=== PATIENT | female | born 1975 | race Two or more races ===

== ENCOUNTER 2016-06-19 06:06 | Day surgery (SDC) | payer OTHER ==
[2016-06-19] MEDS ORDERED: IOPAMIDOL 300 (61%) 100 ML VIAL IV ONE (06:07)
[2016-06-19 06:30] LABS: SPECIFIC GRAVITY 1.015 (1.001-1.030); URINE BILIRUBIN NEGATIVE (NEGATIVE); URINE BLOOD 1+ (NEGATIVE); URINE GLUCOSE (UA) NEGATIVE (NEGATIVE); URINE LEUKOCYTE ESTERASE TRACE (NEGATIVE); URINE NITRITE NEGATIVE (NEGATIVE); URINE PROTEIN NEGATIVE (NEGATIVE); URINE UROBILINOGEN NORMAL (0-1 mg/dl)
[2016-06-19 06:31] LABS: HCG,QUALITATIVE URINE NEGATIVE; URINE APPEARANCE CLEAR; URINE COLOR YELLOW
[2016-06-19] MEDS ORDERED: SODIUM CHLORIDE 0.9% 1,000 ML ONE (06:32)
[2016-06-19] MEDS ORDERED: ONDANSETRON 4 MG/2ML 2 ML VIAL ONE ×2 (06:32→11:07)
[2016-06-19 06:37] LABS: URINE BACTERIA RARE
[2016-06-19 06:59] LABS: ABSOLUTE NEUTROPHIL COUNT 14.4 K/mm3 (1.8-7.7); BASO # 0.1 K/mm3 (0.0-0.2); BASO % 0.3 % (0.2-1.0); EOS % 0.1 % (0.9-2.9); HEMATOCRIT 34.6 % (37.0-47.0); HEMOGLOBIN 10.6 gm/l (12.0-16.0); IMM NEUT # 0.1 K/mm3 (0-0.2); IMM NEUT% 0.4 % (0-1); LYMPH % 11.3 % (15-45); MEAN CELL VOLUME 73.3 fl (81.0-99.0); MEAN CORPUSCULAR HEMOGLOBIN 22.5 pg (27.0-31.0); MEAN CORPUSCULAR HGB CONC 30.6 g/dl (33.0-37.0); MONO # 1.1 (0.0-0.8); MONO % 6.3 % (4-12); NEUT % 81.6 % (43-75); PLATELET COUNT 331 K/mm3 (130-400)
[2016-06-19 07:11] LABS: ALB/GLOB RATIO 1.3 (>1.0); ALBUMIN 4.2 gm/dL (3.5-5.7); CALCIUM 9.2 mg/dL (8.6-10.3)
--- NOTE | 2016-06-19 07:46 | CT ---
Exam Type: ABD/PELVIS W/ CON Date and Time: 06/19/2016 6:47 AM Clinical information: Right lower quadrant pain. Comparison: None Procedure: Imaging device: [employer] Aqu[employer] [address] scanner 1 mm axial images were obtained through the abdomen and pelvis. Stacked reconstructed 3, 4 and 5 mm images were photographed in the axial coronal and sagittal planes. No oral contrast was utilized for this examination. 100 ml of Isovue-300 was injected intravenously. Exam: with intravenous contrast. FINDINGS: Lung bases:The visualized lung bases appear to be appropriate with no mass, effusion or consolidation visualized. Liver: the liver is homogeneous with no discrete abnormality visualized. No definite findings of biliary dilatation are observed. Spleen: The spleen is homogeneous and does not appear to be enlarged. Gallbladder: Normal without enlargement or evidence of adjacent inflammatory changes. Pancreas: Normal without enlargement or evidence of adjacent inflammatory changes. Adrenal glands: Normal without enlargement or evidence of adjacent inflammatory changes. Abdominal aorta: The aorta is of normal caliber and appears to be without significant atherosclerotic disease. Kidneys: There is symmetric renal enhancement observed. A small low-attenuation focus within the lateral right kidney likely reflects a small cyst. No evidence of hydronephrosis is seen. Bowel structures: Mild somewhat diffuse circumferential thickening of the colonic wall is seen extending from the cecum to the distal descending colon suggesting a component of underlying colitis. No findings of obstruction are visualized. Appendix: The appendix is enlarged measuring up to 12 mm transversely with adjacent periappendiceal stranding consistent with acute appendicitis. No adjacent focal fluid collection is observed. Bladder: The bladder is of normal contour. No wall thickening or significant distention is observed. Hernia: There is a fat filled umbilical hernia identified. Adenopathy: No significant enlarged adenopathy is visualized. Osseous structures: No discrete osseous abnormalities are identified. Pelvic structures: The uterus is enlarged with the suggestion of multiple fibroids including a low-attenuation peripherally calcified mass involving the fundus measuring up to 5.7 cm in size. There is also a somewhat heterogeneous appearance of the right adnexa with a likely collapsing right ovarian cyst measuring 1.9 cm in size. No significant pelvic free fluid is visualized. IMPRESSION: 1. Findings of acute appendicitis. No adjacent focal fluid collection is visualized. 2. Mild circumferential thickening of the majority of the colon, extending from the cecum to the mid descending colon suggesting findings of mild diffuse colitis. No findings of obstruction are visualized. 3. A fibroid uterus with a large rim calcified 5.7 cm fundal low-attenuation mass most consistent with a uterine fibroid. 4. A heterogeneous appearance of the right adnexa with an appearance suggesting a 1.9 cm collapsing right ovarian cyst. 5. A fat filled umbilical hernia. 6. A probable subcentimeter cyst involving the right kidney. The findings were called to Dr. Alfaro at 0743 hours.
[2016-06-19] MEDS ORDERED: PIPERACILLIN SODIUM/TAZOBACTAM 4.5 G in NS 0.9% (MINI-BAG PLUS) 100 ML IV ONE (08:00)
[2016-06-19] MEDS ORDERED: LIDOCAINE 2% (MULTI DOSE) 10 ML VIAL ONE (09:36)
[2016-06-19] MEDS ORDERED: PROPOFOL 20 ML IV ONE (09:36)
[2016-06-19] MEDS ORDERED: SUCCINYLCHOLINE CHL 20 MG/ML DOSE ONE ×5 (09:37→09:40)
[2016-06-19] MEDS ORDERED: ROCURONIUM BROMIDE 10 MG/ML DOSE IV ONE ×10 (09:37)
[2016-06-19] MEDS ORDERED: FENTANYL 5 ML ONE (09:45)
[2016-06-19] MEDS ORDERED: MIDAZOLAM HCL 1 MG/ML 2ML VIAL ONE (09:46)
[2016-06-19] MEDS ORDERED: BUPIVACAINE 0.5% W/EPI SDV 30 ML VIAL ONE (09:56)
[2016-06-19] MEDS ORDERED: SODIUM CHLORIDE 0.9% FLUSH 10 ML ONE (09:56)
[2016-06-19] MEDS ORDERED: CEFAZOLIN SODIUM 1,000 MG VIAL ONE (09:56)
[2016-06-19] MEDS ORDERED: LACTATED RINGERS 1,000 ML ONE (10:06)
[2016-06-19] MEDS ORDERED: EPHEDRINE SULFATE 50 MG/ML 1ML VIAL ONE (10:32)
[2016-06-19] MEDS ORDERED: KETOROLAC TROMETHAMINE 30 MG/ML 1 ML VIAL ONE (11:24)
[2016-06-19] MEDS ORDERED: DEXAMETHASONE SOD PHOS 4 MG/1 ML VIAL ONE (11:24)
[2016-06-19] MEDS ORDERED: PROMETHAZINE HCL 25 MG/ML VIAL IM PRN (11:58)
[2016-06-19] MEDS ORDERED: ATROPINE SULFATE 0.4 MG/1 ML VIAL IV PRN (11:58)
[2016-06-19] MEDS ORDERED: ONDANSETRON 4 MG/2ML 2 ML VIAL IV PRN ×2 (11:58→12:46)
[2016-06-19] MEDS ORDERED: HYDRALAZINE HCL 20 MG/1 ML VIAL IV PRN (11:58)
[2016-06-19] MEDS ORDERED: FENTANYL 100 MCG/2 ML VIAL IV PRN (11:58)
[2016-06-19] MEDS ORDERED: NALOXONE HCL 0.4 MG/ML VIAL IV PRN (11:58)
[2016-06-19] MEDS ORDERED: MEPERIDINE 25 MG/ML SYRINGE IV PRN (11:58)
[2016-06-19] MEDS ORDERED: LABETALOL HCL 5 MG/ML 20ML VIAL IV PRN (11:58)
[2016-06-19] MEDS ORDERED: HYDROMORPHONE HCL 1 MG/ML SYRINGE IV PRN (11:58)
[2016-06-19] MEDS ORDERED: PUMP TUBING ONE (12:32)
[2016-06-19] MEDS: LACTATED RINGERS 1,000 ML IV SCH (12:44)
[2016-06-19] MEDS ORDERED: HYDROCODONE/ACETAMINOPHEN 5/325MG TABLET PO PRN (12:46)
[2016-06-19] MEDS ORDERED: KETOROLAC TROMETHAMINE 30 MG/ML 1 ML VIAL IV PRN (12:46)
[2016-06-19] MEDS ORDERED: MORPHINE SULFATE 2 MG/ML SYRINGE IV PRN (12:46)
[2016-06-19] MEDS ORDERED: LACTATED RINGERS 1,000 ML IV SCH (12:46)
[2016-06-19] MEDS ORDERED: MORPHINE SULFATE 4 MG/ML SYRINGE IV PRN (12:56)
[2016-06-19] MEDS ORDERED: MORPHINE SULFATE 10 MG/ML SYRINGE IV PRN (12:57)
--- NOTE | 2016-06-19 13:03 | HP ---
SATHYA MONEG [id number] DATE OF ADMISSION: June 19, 2016 CHIEF COMPLAINT: Abdominal pain. HISTORY OF PRESENT ILLNESS: Sathya Damon is a 41-year-old female who was seen in the emergency room in consultation on June 19, 2016 at the request of Dr. Alfaro. She describes a one-day history of right lower quadrant abdominal pain. She has had nausea but no fevers, no diarrhea. She was evaluated and a CT scan shows acute appendicitis. She has a large uterine fibroid. She was also noted to have some thickening of the colon, possible colitis. PAST MEDICAL HISTORY: Some anxiety. PAST SURGICAL HISTORY: 1. section time three. 2. Tubal ligation. CURRENT MEDICATIONS: Paxil. ALLERGIES TO MEDICATIONS: NONE KNOWN. FAMILY HISTORY: No one else in the family has been sick. No intestinal cancers identified. SOCIAL HISTORY: She is . She does not smoke. She denies alcohol or drug use. REVIEW OF SYSTEMS: CONSTITUTIONAL: No complaints. EYES: No complaints. EARS, NOSE, THROAT: No complaints. CARDIAC: No complaints. PULMONARY: No complaints. GASTROINTESTINAL: As above. GENITOURINARY: No complaints. GYNECOLOGIC: No complaints. MUSCULOSKELETAL: No complaints. NEUROLOGIC: No complaints. ENDOCRINE: No complaints. HEMATOLOGIC: No complaints. PSYCHIATRIC: Anxiety. PHYSICAL EXAMINATION: VITAL SIGNS: Temperature 98.6. Pulse 61. Respirations 18. Blood pressure 125/70. GENERAL: In general she is awake, alert, in no acute distress. HEENT: Head is atraumatic, normocephalic. Her pupils are equal. Sclera is nonicteric. Oropharynx, large tonsils, no exudate or erythema. NECK: Is supple. Without lymphadenopathy or thyromegaly. LUNGS: Clear to auscultation. Normal respiratory effort. CARDIAC: Regular rate and rhythm. No murmurs heard. ABDOMEN: Soft, nondistended. She is tender in the right lower quadrant. She has some rebound tenderness. No involuntary guarding is appreciated. She has a hernia at the umbilicus. It is not clear if she has a scar here from tubal ligation. EXTREMITIES: Are without cyanosis, clubbing or edema. NEUROLOGIC: She is alert and oriented. Sensation grossly intact to all extremities. PSYCHIATRIC: Shows no signs of anxiety or depression. Appears able to make informed medical decisions. LABORATORIES: test is negative. Urinalysis has a trace of leukocyte esterase, 1+ blood. Sodium 131, potassium 3.7, chloride 99, carbon dioxide is 25, BUN 11, creatinine 0.5, glucose 151. Liver function tests are normal. White blood cell count is 17.7, hemoglobin 10.6, platelets are 331. DIAGNOSTIC IMAGING: CT scan was reviewed. There is a large uterine fibroid with calcifications. There is a tubular structure with inflammatory changes consistent with acute appendicitis. No abscess is seen. The colon appears relatively decompressed, possibly mild colitis. ASSESSMENT: 1. Acute appendicitis. 2. Large uterine fibroid. 3. Possible colitis. PLAN: At this point, her symptoms appear to be from appendicitis. We talked about conservative and operative treatment. We discussed risks of an operation including bleeding and infection, injury to the intestines, possible need to convert to an open procedure. She expressed understanding and would like to proceed with surgery. We will go through the hernia defect at the umbilicus and repair this on the way out. Consider checking stool studies after surgery to evaluate for Clostridium difficile or other cause of colitis. We will not do anything with her large uterine fibroid at this time. cc: Suzy Greer M.D.
[2016-06-19] MEDS ORDERED: PIPERACILLIN-TAZO PREMIX BAG 3.375 G in Premix (D5W) 50 ml 1 EACH IV ONE (15:00)
--- NOTE | 2016-06-19 15:07 | OP ---
SATHYA MONGE [id number] DATE OF OPERATION: June 19, 2016 PREOPERATIVE DIAGNOSIS: 1. Right lower quadrant abdominal pain. 2. Incisional hernia at the umbilicus. POSTOPERATIVE DIAGNOSIS: 1. Acute appendicitis. 2. Incisional hernia at the umbilicus. 3. Large uterine fibroid. PROCEDURE: LAPAROSCOPIC APPENDECTOMY WITH REPAIR OF INCISIONAL HERNIA. SURGEON: Alan August M.D. ANESTHESIA: Jorgito Cabral C.R.N.A., general endotracheal. INDICATIONS: This is a 41-year-old female who presented to the emergency room with right lower quadrant abdominal pain. A CAT scan shows probable acute appendicitis. There is possibly some colitis. There is a large uterine fibroid. There is a hernia at the umbilicus with prior history of tubal ligation. DESCRIPTION: With informed consent she was taken to the operating room where she was laid supine on the operating room table. General endotracheal anesthetic was administered. The abdomen was prepped and draped in the usual fashion. Local anesthetic was administered below the umbilicus. Incision was made. We dissected into a hernia sac. We dissected the umbilical skin away from this. We excised the sac at the level of the fascia. Sutures of Surgilon were placed in the fascial edges and a Arlene port was placed. A pneumoperitoneum was created. Local anesthetic was administered in the suprapubic region and also the epigastric region. The 5 mm ports were placed through small stab incisions. The appendix was clearly inflamed and thickened. A defect was created in the mesoappendix adjacent to the cecum. An Endo MAGDIEL was used to divide the appendix it from the cecum. Two fires of the Endo MAGDIEL were used to divide the mesoappendix. Once it was , it was placed within an EndoCatch bag and removed through the infraumbilical port site. Note was made of a large uterine fibroid. No obvious right ovarian masses were seen. No significant colitis was seen along the right colon. Limited irrigation was used and then suctioned. Ports were removed and the pneumoperitoneum evacuated. I cleared off the fascial edges and then closed the hernia defect in a transverse fashion with [id number] sutures of #0 Surgilon. The wound was irrigated. The umbilical skin was sutured down to the fascia with some #2-0 Vicryl. All skin wounds were closed with subcuticular #4-0 Monocryl. Mastisol and SteriStrips were placed. Sterile dressings were applied. She tolerated the procedure and was taken to the recovery room in stable condition. A note was made that needle, instrument and lap counts were reported as correct at the time of closure. Cc: Suzy Greer M.D.
[2016-06-19 16:36] VITALS: BMI 30.9
[2016-06-19] MEDS ORDERED: ACETAMINOPHEN 500 MG TABLET PO PRN (21:40)
[2016-06-19] MEDS ORDERED: BLISTEX LIPSTICK 1 EACH TP ONE ×2 (22:05→22:07)
[2016-06-20] MEDS: LACTATED RINGERS 1,000 ML IV SCH (02:39)
[2016-06-20 07:49] VITALS: BP 110/68
[2016-06-20 11:01] LABS: C DIFF TOXIN A/B NEGATIVE (NEGATIVE)
--- NOTE | 2016-06-22 15:18 | SURGPATH ---
[facility] [address] [place] [id number] Patient Name: SATHYA MONGE MR#: [id number] : 1975 Gender: F Specimen #: [id number] Collected: 06/19/2016 Received: 06/21/2016 Reported: 06/22/2016 Submitting Phys: SAPPHIRE VAN Copy To Phys: [facility] JANAK ROTH Clinical History / Pre-Operative Diagnosis: Appendicitis Specimen Source / Surgical Procedure Performed: Appendix Interpretation: APPENDIX, APPENDECTOMY: - ACUTE APPENDICITIS Electronically Signed Out Leena Bonilla M.D. Gross Description: The specimen is received in formalin labeled with the patient's name and "appendix". The specimen consists of a 9 cm in length and 0.7-1.5 cm in diameter vermiform appendix with attached mesoappendix. The base is stapled. The serosa is dull with exudate. The mucosa is hemorrhagic. The intraluminal contents are purulent. A distinct perforation or obstruction is not identified. 1A technical sales representatives, base and tip NATHAN Mcbride Microscopic Description: Benign appendiceal sections show extensive mucosal ulceration and acute transmural inflammation without perforation, parasite, dysplasia or neoplasm. 1: [id number] K35.80
== END 2016-06-20 09:48 | disposition home or self-care (01) ==
LOC: ED 06:06 → MS 09:57 → UNDOADMIN 09:57 → SDC 09:57
PROVIDERS: ATTEND Surgery
PROC: 0WUF4JZ Supplement Abdominal Wall with Synthetic Substitute, Percutaneous Endoscopic Approach (ICD-10-PCS; principal; 2016-06-19)
PROC: 0DTJ4ZZ Resection of Appendix, Percutaneous Endoscopic Approach (ICD-10-PCS; 2016-06-19)
DX: K35.80 Unspecified acute appendicitis (principal); K43.2 Incisional hernia without obstruction or gangrene; D25.9 Leiomyoma of uterus, unspecified; F41.9 Anxiety disorder, unspecified; R93.3 Abnormal findings on diagnostic imaging of other parts of digestive tract